=== PATIENT | female | born 1955 | race Two or more races ===

== ENCOUNTER 2023-05-03 10:36 | Emergency (ER) | payer OTHER ==
[~2023-05-03] VITALS: Ht 160 cm; Wt 44.5 kg
[2023-05-03 14:38] LABS: HEMATOCRIT 38.2 % (36.0-45.00); HEMOGLOBIN 13.5 g/dL (12.0-15.00); MEAN CELL VOLUME 89.6 fL (80.00-100.00); MEAN CORPUSCULAR HEMOGLOBIN 31.8 pg (27.00-32.0); MEAN CORPUSCULAR HGB CONC 35.4 g/dl (32.0-36.0); PLATELET COUNT 226 K/uL (150-450); RED BLOOD COUNT 4.26 M/uL (4.00-6.00); RED CELL DISTRIBUTION WIDTH 12.8 % (11.5-14.5)
[2023-05-03 15:20] LABS: ALBUMIN 3.2 gm/dL (3.4-5.0); BILIRUBIN TOTAL 0.42 mg/dL (0.3-1.2); BILIRUBIN,CONJUGATED 0.12 mg/dL (0.0-0.2); BILIRUBIN,UNCONJUGATED 0.3 mg/dL (0.0-0.6); CALCIUM 8.6 mg/dL (8.5-10.1); CREATININE SERUM 0.72 mg/dL (0.55-1.02); GFR 80.55; TOTAL PROTEIN 6.9 gm/dL (6.4-8.2)
[2023-05-03 15:35] LABS: URINE APPEARANCE Clear; URINE BILIRRUBIN Negative (NEGATIVE); URINE BLOOD Large; URINE COLOR Yellow; URINE GLUCOSE Negative (NEGATIVE); URINE LEUKOCYTE Negative; URINE NITRATE Negative
[2023-05-03 15:38] LABS: URINE BACTERIA 59.2 uL (0.0-1933); URINE EPITHELIAL CELLS 36.6 uL (0.0-38.8); URINE RBC 298.2 uL (0.0-20.8); URINE WBC 24.4 uL (0.0-23.2)
[2023-05-03 15:46] LABS: POTASSIUM 2.88 mEq/L (3.5-5.1)
[2023-05-03 15:53] LABS: URINE CRYSTALS FEW /HPF; URINE PROTEIN 100 (NEGATIVE)
[2023-05-03 15:54] LABS: URINE MUCUS MODERATE
[2023-05-03 22:33] LABS: CALCIUM 8.7 mg/dL (8.5-10.1); CREATININE SERUM 0.65 mg/dL (0.55-1.02); GFR 90.64; POTASSIUM 3.29 mEq/L (3.5-5.1)
== END 2023-05-04 00:27 | disposition home or self-care (01) ==
LOC: ER
PROVIDERS: Emergency Medicine; General Practice
DX: K52.89 Other specified noninfective gastroenteritis and colitis (principal); E05.80 Other thyrotoxicosis without thyrotoxic crisis or storm; M19.90 Unspecified osteoarthritis, unspecified site; E87.6 Hypokalemia
CPT/HCPCS: 36415; 96365; 99284; J2175; J2405; J3490